=== PATIENT | male | born 1985 ===

== ENCOUNTER 2019-09-18 12:41 | Emergency (ER) | payer OTHER, MEDICAID, SELFPAY ==
[2019-09-18] VITALS (9 sets, daily range): BP systolic 108–139; BP diastolic 57–80; PULSE 68–97; RESP 13–34; TEMP 36.9; O2SAT 92–99
--- NOTE | 2019-09-18 13:11 | DI.RAD.S_ITS ---
PROCEDURE: XR CHEST 1V INDICATIONS: flu-like symptoms TECHNIQUE: One view of the chest was acquired. COMPARISON: None. FINDINGS: Surgical changes and devices: None. Lungs and pleura: Lungs are clear. No pleural effusions or pneumothorax. Mediastinum: Mediastinal contours appear normal. Heart size is normal. Bones and chest wall: No suspicious bony lesions. Overlying soft tissues appear unremarkable. IMPRESSION: No acute cardiopulmonary findings. Dictated by: Trisha King M.D. on 09/18/2019 at 14:04 Approved by: Trisha King M.D. on 09/18/2019 at 14:04
--- NOTE | 2019-09-18 13:18 | ED_ITS ---
HPI - Chest Pain <VINNIE Person - Last Filed: 09/18/19 21:07> General Chief Complaint: Chest Pain Stated Complaint: Chest Pressure, Shortness of Breath Time Seen by Provider: 09/18/19 12:55 Source: EMS Mode of arrival: EMS Limitations: no limitations History of Present Illness HPI narrative: 33yo male with a history of CVA without known residual, presents emergency department complaining of shortness of breath, chest tightness, dry cough, and fever for the past 1-2 weeks. Patient reports he also developed lower mid to left-sided abdominal pain yesterday. He states ?I may have had a hernia that resolved ?. Patient reports dry heaving last night with nausea. Denies any diarrhea, constipation, dizziness, trauma, leg pain, syncope, recent falls, headaches, or any other concerns. Patient denies diabetes but states blood clots and diabetes run in his family. Patient states he has had a cataract-like abnormality in his left eye that he has been seen for approximately 2 months ago, is waiting for an appointment and follow-up with the specialist, denies any worsening visual abnormalities. Patient states that he is homeless and has been living in shelters. Reports use of marijuana. Related Data Home Medications Medication Instructions Recorded Confirmed ibuprofen 600 mg PO Q8H PRN 09/18/19 09/18/19 Allergies Allergy/AdvReac Type Severity Reaction Status Date / Time morphine AdvReac Intermediate ITCHING Verified 09/18/19 13:09 Review of Systems <VINNIE Person - Last Filed: 09/18/19 21:07> Review of Systems Narrative: REVIEW OF SYSTEMS: GENERAL: Denies fever, chills, malaise, or wt. loss. HENT: No head trauma. EYES: No vision changes. CARDIOVASCULAR: No chest pain, palpitations, or orthopnea. RESPIRATORY: Complains of cough and shortness of breath, see HPI. GASTROINTESTINAL: Complains of left lower quadrant abdominal pain, see HPI GENITOURINARY: No flank pain, urinary incontinence, hesitancy, frequency, or dysuria. Denies scrotal swelling or penile discharge. MUSCULOSKELETAL: No pain, weakness, or trauma. INTEGUMENTARY: No rash, lesions, or pruritus. NEURO: No numbness, tingling. No headaches. PSYCH: No behavior or mood changes. Patient History <VINNIE Person Last Filed: 09/18/19 21:07> Medical History CVA (cerebral vascular accident) (Acute) Social History Smoking Status: Current every day smoker Smoking Status: Current every day smoker alcohol intake frequency: 0-2 drinks per day Substance Use Type: does not use Exam <VINNIE Person - Last Filed: 09/18/19 21:07> Initial Vital Signs Initial Vital Signs: Vital Signs Temperature 98.5 F 09/18/19 12:45 Pulse Rate 89 09/18/19 12:45 Respiratory Rate 15 09/18/19 12:45 Blood Pressure 127/66 09/18/19 12:45 Pulse Oximetry 95 09/18/19 12:45 PHYSICAL EXAMINATION: GENERAL: Alert and awake, disheveled, poorly groomed. Patient appears tired but awakes to voice. Morbidly obese. Answers questions promptly and ap propriately. Vital signs noted. HENT: Normocephalic, atraumatic. Hearing intact. Oral mucosa is pink and moist. Oropharynx without erythema. EYES: Conjunctiva pink, sclera white, no periorbital swelling. CARDIOVASCULAR: S1 and S2 sounds normal. Regular rate and rhythm, no murmurs, clicks, or bruits. No pedal edema. RESPIRATORY: Normal respiratory rate, trachea midline, airway patent. No s tridor, nasal flaring or accessory muscle use. Lungs are clear in all [place] without wheeze, rhonchi, or crackles. Occasional dry cough noted throughout examination. GASTROINTESTINAL: Bowel sounds normoactive. Abdomen with left lower quadrant tenderness, no rebound tenderness. No organomegaly, no palpable masses. GENITALURINARY: No flank tenderness. MUSCULOSKELETAL: Normal gait and coordination. Equal tone and mass bilaterally. EXTREMITIES: CMS intact, no pedal edema. SKIN: Warm, dry, soft, appropriate color for ethnicity. No lesions, rashes, or wounds to visualized areas. NEURO: Alert and Oriented X 3. Good coordination. No ataxia, or sensory deficits, or cognitive issues. PSYCH: Appropriate affect and mood. <Aidan Malik MD - Last Filed: 09/19/19 07:42> Initial Vital Signs Initial Vital Signs: Vital Signs Temperature 98.5 F 09/18/19 12:45 Pulse Rate 89 09/18/19 12:45 Respiratory Rate 15 09/18/19 12:45 Blood Pressure 127/66 09/18/19 12:45 Pulse Oximetry 95 09/18/19 12:45 Course <VINNIE Person - Last Filed: 09/18/19 21:07> Course Course Narrative: Patient reported feeling somewhat better after administration of fluids, Toradol, and ondansetron. Patient was given resources to local shelters, HANDLE SANDER OPERATOR spoke with patient about resources. Orders Ordered: Discontinued Medications Sodium Chloride (Normal Saline 0.9%) 1,000 mls @ 1,000 mls/hr IV BOLUS ONE Stop: 09/18/19 16:51 Last Infusion: 09/18/19 18:03 Dose: 0 mls/hr Documented by: Admin: 09/18/19 16:03 Dose: 1,000 mls/hr Documented by: XAVIER Ketorolac Tromethamine (Toradol) 30 mg IV NOW ONE Stop: 09/18/19 15:09 Last Admin: 09/18/19 15:25 Dose: 30 mg Documented by: XAVIER Ondansetron HCl (Zofran) 4 mg IV NOW ONE Stop: 09/18/19 15:09 Last Admin: 09/18/19 15:25 Dose: 4 mg Documented by: XAVIER Consultations Consultation #1: Patient staffed with DR. Malik discussed symptoms, risk factors, history, test results, and plan of care. Vital Signs Vital signs: Vital Signs - 8 hr 09/18/19 13:00 09/18/19 13:13 09/18/19 13:30 Pulse Rate 90 97 H 68 Respiratory Rate 16 34 H 24 Blood Pressure [Right Arm] 118/57 L 118/57 L 139/80 Pulse Oximetry 92 94 94 09/18/19 14:00 09/18/19 14:56 09/18/19 16:00 Pulse Rate 75 79 78 Respiratory Rate 13 20 17 Blood Pressure [Right Arm] 125/75 132/78 Pulse Oximetry 93 94 98 09/18/19 17:30 09/18/19 18:00 Pulse Rate 84 86 Respiratory Rate 17 21 Blood Pressure [Right Arm] 129/75 108/58 L Pulse Oximetry 99 99 <Aidan Malik MD - Last Filed: 09/19/19 07:42> Orders Ordered: Discontinued Medications Sodium Chloride (Normal Saline 0.9%) 1,000 mls @ 1,000 mls/hr IV BOLUS ONE Stop: 09/18/19 16:51 Last Infusion: 09/18/19 18:03 Dose: 0 mls/hr Documented by: Admin: 09/18/19 16:03 Dose: 1,000 mls/hr Documented by: XAVIER Ketorolac Tromethamine (Toradol) 30 mg IV NOW ONE Stop: 09/18/19 15:09 Last Admin: 09/18/19 15:25 Dose: 30 mg Documented by: XAVIER Ondansetron HCl (Zofran) 4 mg IV NOW ONE Stop: 09/18/19 15:09 Last Admin: 09/18/19 15:25 Dose: 4 mg Documented by: XAVIER Vital Signs Vital signs: Vital Signs - 8 hr 09/18/19 13:00 09/18/19 13:13 09/18/19 13:30 Pulse Rate 90 97 H 68 Respiratory Rate 16 34 H 24 Blood Pressure [Right Arm] 118/57 L 118/57 L 139/80 Pulse Oximetry 92 94 94 09/18/19 14:00 09/18/19 14:56 09/18/19 16:00 Pulse Rate 75 79 78 Respiratory Rate 13 20 17 Blood Pressure [Right Arm] 125/75 132/78 Pulse Oximetry 93 94 98 09/18/19 17:30 09/18/19 18:00 Pulse Rate 84 86 Respiratory Rate 17 21 Blood Pressure [Right Arm] 129/75 108/58 L Pulse Oximetry 99 99 MDM - Chest Pain <VINNIE Person - Last Filed: 09/18/19 21:07> Medical Records Data Attestation: I reviewed the patient's medical records. Lab Data Attestation: I reviewed the patient's lab results. Result diagrams: 09/18/19 13:00 09/18/19 13:00 Labs: Lab Results 09/18/19 09/18/19 09/18/19 Range/Units 13:00 13:00 13:00 WBC 8.2 (4.5-11.0) X10^3/uL RBC 4.93 (4.5-5.9) X10^6/uL Hgb 14.3 (13.5-17.5) g/dL Hct 41.9 (41-53) % MCV 85.0 (80-100) fL MCH 29.0 (26-34) PG MCHC 34.1 (30-36) % RDW 15.1 H (11.6-14.8) % Plt Count 326 (150-400) X10^3/uL Neut % (Auto) 59.9 (50-75) % Lymph % (Auto) 28.7 (25-40) % Callaway % (Auto) 7.6 (3-14) % Eos % (Auto) 3.1 (2-4) % Baso % (Auto) 0.7 (0-2) % Neut # (Auto) 4900 (1154-3993) /uL Lymph # (Auto) 2400 (4494-3621) /uL Callaway # (Auto) 600 (0-900) /uL Eos # (Auto) 300 (0-450) /uL Baso # (Auto) 100 (0-100) /uL D-Dimer < 200 (<230) ng/mL Sodium (137-145) mmol/L Potassium (3.4-5.1) mmol/L Chloride (98-107) mmol/L Carbon Dioxide (22-32) mmol/L BUN (9-20) mg/dL Creatinine (0.66-1.25) mg/dL Estimated GFR (>60) mL/min BUN/Creatinine Ratio (6-22) Glucose (70-100) mg/dL Calcium (8.4-10.2) mg/dL Ferritin (18-464) ng/mL Total Bilirubin (0.2-1.3) mg/dL AST (17-59) IU/L ALT (<50) IU/L Alkaline Phosphatase (38-126) U/L Lactate Dehydrogenase (313-618) U/L Total Creatine Kinase (55-170) U/L CK-MB (CK-2) (<2.37) ng/mL CK-MB (CK-2) Rel Index (1.5-5.0) % Troponin I (0.01-0.034) ng/mL C-Reactive Protein (<1.0) mg/dL NT-Pro-B Natriuret Pep (<125) pg/mL Total Protein (6.3-8.2) g/dL Albumin (3.5-5.0) g/dL Globulin (1.7-4.1) g/dL Albumin/Globulin Ratio (1.0-2.8) Procalcitonin < 0.05 (<0.5) ng/mL 09/18/19 Range/Units 13:00 WBC (4.5-11.0) X10^3/uL RBC (4.5-5.9) X10^6/uL Hgb (13.5-17.5) g/dL Hct (41-53) % MCV (80-100) fL MCH (26-34) PG MCHC (30-36) % RDW (11.6-14.8) % Plt Count (150-400) X10^3/uL Neut % (Auto) (50-75) % Lymph % (Auto) (25-40) % Callaway % (Auto) (3-14) % Eos % (Auto) (2-4) % Baso % (Auto) (0-2) % Neut # (Auto) (9702-6411) /uL Lymph # (Auto) (3816-9145) /uL Callaway # (Auto) (0-900) /uL Eos # (Auto) (0-450) /uL Baso # (Auto) (0-100) /uL D-Dimer (<230) ng/mL Sodium 140 (137-145) mmol/L Potassium 4.1 (3.4-5.1) mmol/L Chloride 107 (98-107) mmol/L Carbon Dioxide 26 (22-32) mmol/L BUN 10 (9-20) mg/dL Creatinine 0.72 (0.66-1.25) mg/dL Estimated GFR > 60.0 (>60) mL/min BUN/Creatinine Ratio 13.9 (6-22) Glucose 113 H (70-100) mg/dL Calcium 9.9 (8.4-10.2) mg/dL Ferritin 27 (18-464) ng/mL Total Bilirubin 0.5 (0.2-1.3) mg/dL AST 31 (17-59) IU/L ALT 25 (<50) IU/L Alkaline Phosphatase 71 (38-126) U/L Lactate Dehydrogenase 532 (313-618) U/L Total Creatine Kinase 123 (55-170) U/L CK-MB (CK-2) 1.12 (<2.37) ng/mL CK-MB (CK-2) Rel Index 0.9 L (1.5-5.0) % Troponin I < 0.012 (0.01-0.034) ng/mL C-Reactive Protein 0.8 (<1.0) mg/dL NT-Pro-B Natriuret Pep 60 (<125) pg/mL Total Protein 7.6 (6.3-8.2) g/dL Albumin 4.4 (3.5-5.0) g/dL Globulin 3.2 (1.7-4.1) g/dL Albumin/Globulin Ratio 1.4 (1.0-2.8) Procalcitonin (<0.5) ng/mL Urine Dip Bedside Urine Glucose Negative Bedside Urine Bilirubin - Negative Bedside Urine Ketone - Negative Urine Specific Minto 1.015 Bedside Urine Occult Blood - Negative Bedside Urine pH 6.0 Bedside Urine Protein - Negative Bedside Urine Urobilinogen +/- 1mg Bedside Urine Nitrite - Negative Bedside Urine Leukocytes - Negative Esterase Imaging Data Chest x-ray: Radiologist's Impression: [place] [address] XRay Report Signed Patient: Ferdinand Regalado#: [id number] : 1985Acct:[id number] Age/Sex: 33 / MDate of Service: 09/18/19 Loc: ED Accession Number: [id number] Procedure: XR chest 1V Ordering Provider: Jaja Templeton PROCEDURE: XR CHEST 1V INDICATIONS: flu-like symptoms TECHNIQUE: One view of the chest was acquired. COMPARISON: None. FINDINGS: Surgical changes and devices: None. Lungs and pleura: Lungs are clear. No pleural effusions or pneumothorax. Mediastinum: Mediastinal contours appear normal. Heart size is normal. Bones and chest wall: No suspicious bony lesions. Overlying soft tissues appear unremarkable. IMPRESSION: No acute cardiopulmonary findings. Dictated by: Trisha King M.D. on 09/18/2019 at 14:04 Approved by: Trisha King M.D. on 09/18/2019 at 14:04 CT scan - abdomen/pelvis: Radiologist's Impression: [address] [address] [address] Scan Report Signed Patient: Ferdinand Regalado#: [id number] : 1985Acct:[id number] Age/Sex: 33 / MDate of Service: 09/18/19 Loc: ED Accession Number: [id number] Procedure: CT abdomen pelvis w con Ordering Provider: Jaja Templeton PROCEDURE: CT ABDOMEN PELVIS W CON INDICATIONS: RLQ abd pain TECHNIQUE: After the administration of intravenous contrast, 5 mm thick sections acquired from the diaphragm to the symphysis. 5 mm coronal and sagittal reformats were acquired. For radiation dose reduction, the following was used: automated exposure control, adjustment of mA and/or kV according to patient size. COMPARISON: None. FINDINGS: Image quality: Excellent. ABDOMEN: Lung bases: Lung bases are clear. Heart size is normal. Solid organs: Liver is normal in size and enhancement. Gallbladder is mildly contracted. Biliary system is non dilated. Pancreas enhances normally. Spleen is normal in size and enhancement. No adrenal nodules. Kidneys demonstrate normal size and enhancement, without hydronephrosis. Low-density exophytic cystic lesions are present off the left renal cortex. Peritoneum and bowel: Bowel loops demonstrate normal wall thickness and caliber. The appendix is thin walled. No free fluid or air. Nodes and vessels: No retroperitoneal or mesenteric adenopathy by size criteria. Aorta and inferior vena cava are normal in size. Miscellaneous: No ventral hernias. PELVIS: Genitourinary: Bladder wall thickness is normal. Miscellaneous: No inguinal hernias or adenopathy. Bones: No suspicious bony lesions. No vertebral body compression fractures. IMPRESSION: 1. No acute intra-abdominal findings. Normal appendix. Dictated by: Trisha King M.D. on 09/18/2019 at 14:25 Approved by: Trisha King M.D. on 09/18/2019 at 14:27 ECG Data Interpretation: Normal sinus rhythm, rate 91, [place] interval 128, QTC 390. No ST elevation or ST depression. No T-wave abnormality. No ectopy. EKG also viewed by [place]. [facility] Narrative Medical decision making narrative: This is a 33-year-old homeless male who presents emergency department for cough, shortness of breath, and subjective fever for the past 2 weeks. Patient has a history of CVA. Patient's presentation is concerning for COVID-19 especially due to risk factors such as homelessness and living in shelters, nasal swab was sent for testing. Patient is not hypoxic, stable, without need for supplemental oxygen. Less concern for bacterial infectious etiology due to clear chest x-ray, normal white blood cell count, patient is afebrile non tachycardic in the emergency department. Additionally there was some concern for abdominal etiology due to reports of left-sided abdominal pain and history of vomiting. This may be due to viral etiology however CT scan was performed to rule out any acute abdominal infe ction, blockages, other concerns. CT negative. CMP within normal limits. Less concern for PE D-dimer is negative. D-dimer was initially done due to familial concerns of blood clots and patient reports CVA at a young age. Less concern for cardiac involvement as EKG is non-remarkable, troponin is n egative, BNP is negative, and patient denies any chest pain Patient was hemodynamically stable throughout the emergency department, reported some improvement with fluids and Toradol administration. Did not appear to need inpatient supplemental treatment. It the patient has had ongoing symptoms for the past 2 weeks without acute changes seen on x-ray or laboratory work without need for supplemental oxygen if patient does test positive for COVID-19 as significant etiology often occurs between days 7 through 11. However, patient was given very strict return precautions for new or worsening symptoms. Was given resources for follow-up and resources for shelters. Patient spoke with HANDLE SANDER OPERATOR. <Aidan Malik MD - Last Filed: 09/19/19 07:42> Lab Data Labs: Lab Results 09/18/19 09/18/19 09/18/19 Range/Units 13:00 13:00 13:00 WBC 8.2 (4.5-11.0) X10^3/uL RBC 4.93 (4.5-5.9) X10^6/uL Hgb 14.3 (13.5-17.5) g/dL Hct 41.9 (41-53) % MCV 85.0 (80-100) fL MCH 29.0 (26-34) PG MCHC 34.1 (30-36) % RDW 15.1 H (11.6-14.8) % Plt Count 326 (150-400) X10^3/uL Neut % (Auto) 59.9 (50-75) % Lymph % (Auto) 28.7 (25-40) % Callaway % (Auto) 7.6 (3-14) % Eos % (Auto) 3.1 (2-4) % Baso % (Auto) 0.7 (0-2) % Neut # (Auto) 4900 (8597-1961) /uL Lymph # (Auto) 2400 (5679-9634) /uL Callaway # (Auto) 600 (0-900) /uL Eos # (Auto) 300 (0-450) /uL Baso # (Auto) 100 (0-100) /uL D-Dimer < 200 (<230) ng/mL Sodium (137-145) mmol/L Potassium (3.4-5.1) mmol/L Chloride (98-107) mmol/L Carbon Dioxide (22-32) mmol/L BUN (9-20) mg/dL Creatinine (0.66-1.25) mg/dL Estimated GFR (>60) mL/min BUN/Creatinine Ratio (6-22) Glucose (70-100) mg/dL Calcium (8.4-10.2) mg/dL Ferritin (18-464) ng/mL Total Bilirubin (0.2-1.3) mg/dL AST (17-59) IU/L ALT (<50) IU/L Alkaline Phosphatase (38-126) U/L Lactate Dehydrogenase (313-618) U/L Total Creatine Kinase (55-170) U/L CK-MB (CK-2) (<2.37) ng/mL CK-MB (CK-2) Rel Index (1.5-5.0) % Troponin I (0.01-0.034) ng/mL C-Reactive Protein (<1.0) mg/dL NT-Pro-B Natriuret Pep (<125) pg/mL Total Protein (6.3-8.2) g/dL Albumin (3.5-5.0) g/dL Globulin (1.7-4.1) g/dL Albumin/Globulin Ratio (1.0-2.8) Procalcitonin < 0.05 (<0.5) ng/mL 09/18/19 Range/Units 13:00 WBC (4.5-11.0) X10^3/uL RBC (4.5-5.9) X10^6/uL Hgb (13.5-17.5) g/dL Hct (41-53) % MCV (80-100) fL MCH (26-34) PG MCHC (30-36) % RDW (11.6-14.8) % Plt Count (150-400) X10^3/uL Neut % (Auto) (50-75) % Lymph % (Auto) (25-40) % Callaway % (Auto) (3-14) % Eos % (Auto) (2-4) % Baso % (Auto) (0-2) % Neut # (Auto) (2887-1989) /uL Lymph # (Auto) (5753-9455) /uL Callaway # (Auto) (0-900) /uL Eos # (Auto) (0-450) /uL Baso # (Auto) (0-100) /uL D-Dimer (<230) ng/mL Sodium 140 (137-145) mmol/L Potassium 4.1 (3.4-5.1) mmol/L Chloride 107 (98-107) mmol/L Carbon Dioxide 26 (22-32) mmol/L BUN 10 (9-20) mg/dL Creatinine 0.72 (0.66-1.25) mg/dL Estimated GFR > 60.0 (>60) mL/min BUN/Creatinine Ratio 13.9 (6-22) Glucose 113 H (70-100) mg/dL Calcium 9.9 (8.4-10.2) mg/dL Ferritin 27 (18-464) ng/mL Total Bilirubin 0.5 (0.2-1.3) mg/dL AST 31 (17-59) IU/L ALT 25 (<50) IU/L Alkaline Phosphatase 71 (38-126) U/L Lactate Dehydrogenase 532 (313-618) U/L Total Creatine Kinase 123 (55-170) U/L CK-MB (CK-2) 1.12 (<2.37) ng/mL CK-MB (CK-2) Rel Index 0.9 L (1.5-5.0) % Troponin I < 0.012 (0.01-0.034) ng/mL C-Reactive Protein 0.8 (<1.0) mg/dL NT-Pro-B Natriuret Pep 60 (<125) pg/mL Total Protein 7.6 (6.3-8.2) g/dL Albumin 4.4 (3.5-5.0) g/dL Globulin 3.2 (1.7-4.1) g/dL Albumin/Globulin Ratio 1.4 (1.0-2.8) Procalcitonin (<0.5) ng/mL Urine Dip Bedside Urine Glucose Negative Bedside Urine Bilirubin - Negative Bedside Urine Ketone - Negative Urine Specific Minto 1.015 Bedside Urine Occult Blood - Negative Bedside Urine pH 6.0 Bedside Urine Protein - Negative Bedside Urine Urobilinogen +/- 1mg Bedside Urine Nitrite - Negative Bedside Urine Leukocytes - Negative Esterase Discharge Plan Departure Patient Disposition: Home Clinical Impression: Respiratory illness Discharge Date/Time: 09/18/19 19:32 Instructions: DI for COVID-19 (Suspected or Confirmed ) Activity Restrictions/Additional Instructions: Thank you for entrusting me with your care today. As discussed, your chest x- ray, abdominal CT, laboratory work, and EKG are non-remarkable. It is possible that you may have a viral illness. We have tested due for COVID-19. Please be re-evaluated immediately if symptoms worsen such as shortness of breath, cough, fevers, or any other concerns. Symptoms continue, please be re-evaluated in 48- 72 hours. *What to do: * per recommendations from the CDC and the [facility] Department of Health * stay home except to get medical care. Restrict activities outside your home, except for getting medical care. Do not go to work, school, or public areas. Avoid using public transportation, ride sharing, or taxis. * separate yourself from other people in your home. * call ahead before visiting your doctor * Wear a face mask * Cover your coughs and sneezes * Clean your hands often * Avoid sharing household items * Clean all high-touch services every day * Monitor your symptoms and seek prompt medical attention if your illness is worsening, particularly with difficulty in breathing. Discussed continuing home isolation * for individuals with symptoms who are confirmed or suspected cases of COVID-19 and are directed to care for themselves at home, discontinue home isolation under the following conditions: 1. At least 72 hours have passed since recovery, defined as resolution of fever without the use of fever reducing medications, and improvement in respiratory symptoms (cough, shortness of breath) AND, 2. At least 7 days have passed since symptoms 1st appeared Individuals with laboratory confirmed COVID-19 who have not had any symptoms may discontinue home isolation when at least 7 days have passed since the date of their 1st COVID-19 diagnostic test and have had no subsequent illness Prescriptions: No Action ibuprofen 600 mg Tablet 600 mg PO Q8H PRN (Reason: Pain (Scale Score 1-3)) RF: 0
[2019-09-18 13:20] LABS: Add Manual Diff / Slide Review NO; Basophils Absolute Auto 100 /uL (0-100); Basophils Percent Auto 0.7 % (0-2); Eosinophils Absolute Auto 300 /uL (0-450); Eosinophils Percent Auto 3.1 % (2-4); Hematocrit 41.9 % (41-53); Hemoglobin 14.3 g/dL (13.5-17.5); Lymphocytes Absolute Auto 2400 /uL (1100-4500); Lymphocytes Percent Auto 28.7 % (25-40); Mean Corpuscular HGB Conc 34.1 % (30-36); Monocytes Absolute Auto 600 /uL (0-900); Monocytes Percent Auto 7.6 % (3-14); Neutrophils Absolute Auto 4900 /uL (1500-7000); Neutrophils Percent Auto 59.9 % (50-75); Platelet Count 326 X10^3/uL (150-400); Red Blood Cell Count 4.93 X10^6/uL (4.5-5.9); Red Cell Distribution Width 15.1 % (11.6-14.8); White Blood Cell Count 8.2 X10^3/uL (4.5-11.0)
[2019-09-18 13:26] LABS: D Dimer < 200 ng/mL (<230)
[2019-09-18 13:33] LABS: Alanine Aminotransferase 25 IU/L (<50); Albumin 4.4 g/dL (3.5-5.0); Albumin Globulin Ratio 1.4 (1.0-2.8); Alkaline Phosphatase 71 U/L (38-126); Aspartate Aminotransferase 31 IU/L (17-59); BUN Creatinine Ratio 13.9 (6-22); Bilirubin Total 0.5 mg/dL (0.2-1.3); Blood Urea Nitrogen 10 mg/dL (9-20); C-Reactive Protein Quant 0.8 mg/dL (<1.0); Calcium 9.9 mg/dL (8.4-10.2); Carbon Dioxide 26 mmol/L (22-32); Chloride 107 mmol/L (98-107); Creatine Kinase 123 U/L (55-170); Estimated Glomerular Filt Rate > 60.0 mL/min (>60); Globulin 3.2 g/dL (1.7-4.1); Glucose 113 mg/dL (70-100); HEMOLYSIS 16 (0-50); Lactate Dehydrogenase 532 U/L (313-618); Potassium 4.1 mmol/L (3.4-5.1); Sodium 140 mmol/L (137-145); Total Protein 7.6 g/dL (6.3-8.2)
[2019-09-18 13:43] LABS: NT-proBNP (BNP-Adult 18+) 60 pg/mL (<125); Troponin I < 0.012 ng/mL (0.01-0.034)
[2019-09-18 13:46] LABS: CKMB % Relative Index 0.9 % (1.5-5.0); Creatine Kinase MB 1.12 ng/mL (<2.37)
[2019-09-18 13:47] LABS: Procalcitonin < 0.05 ng/mL (<0.5)
--- NOTE | 2019-09-18 14:01 | DI.CT.S_ITS ---
PROCEDURE: CT ABDOMEN PELVIS W CON INDICATIONS: RLQ abd pain TECHNIQUE: After the administration of intravenous contrast, 5 mm thick sections acquired from the diaphragm to the symphysis. 5 mm coronal and sagittal reformats were acquired. For radiation dose reduction, the following was used: automated exposure control, adjustment of mA and/or kV according to patient size. COMPARISON: None. FINDINGS: Image quality: Excellent. ABDOMEN: Lung bases: Lung bases are clear. Heart size is normal. Solid organs: Liver is normal in size and enhancement. Gallbladder is mildly contracted. Biliary system is non dilated. Pancreas enhances normally. Spleen is normal in size and enhancement. No adrenal nodules. Kidneys demonstrate normal size and enhancement, without hydronephrosis. Low-density exophytic cystic lesions are present off the left renal cortex. Peritoneum and bowel: Bowel loops demonstrate normal wall thickness and caliber. The appendix is thin walled. No free fluid or air. Nodes and vessels: No retroperitoneal or mesenteric adenopathy by size criteria. Aorta and inferior vena cava are normal in size. Miscellaneous: No ventral hernias. PELVIS: Genitourinary: Bladder wall thickness is normal. Miscellaneous: No inguinal hernias or adenopathy. Bones: No suspicious bony lesions. No vertebral body compression fractures. IMPRESSION: 1. No acute intra-abdominal findings. Normal appendix. Dictated by: Trisha King M.D. on 09/18/2019 at 14:25 Approved by: Trisha King M.D. on 09/18/2019 at 14:27
[2019-09-18 14:06] LABS: Ferritin 27 ng/mL (18-464)
[2019-09-18] MEDS: ONDANSETRON 4 MG/2 ML INJ IV (15:25)
[2019-09-18] MEDS: KETOROLAC 60 MG/2 ML VIAL 30 MG IV (15:25)
[2019-09-18] MEDS: SODIUM CHLORIDE 0.9% 1,000 ML 1000 ML IV (16:03)
--- NOTE | 2019-09-18 19:24 | CM.SWNOTE ---
MICROFILM TECHNICIAN note MICROFILM TECHNICIAN consult requested for patient by RM Borrego. Patient is pending COVID and reports having no place to go upon discharge. MICROFILM TECHNICIAN meets with patient. Patient says he has been feeling depressed and tired. Patient reports that he has not had stable housing in many years, and was staying in a motel prior to admission to ED. Patient said he was staying at a motel, but that his voucher had . 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 MICROFILM TECHNICIAN and patient explore options for place for patient to go. Patient does not believe that he will be able to stay with his friends and does not qualify for a voucher. Patient states he does not want to return to [place], as the people he was staying with there were not good people. MICROFILM TECHNICIAN informs patient of [employer] motel program increase due to covid. [place] states he has number and says he might call following week. Patient asks where exit is and leaves ED. ISABELL Mckee
--- NOTE | 2019-09-18 19:30 | PC.NURSE ---
seen by social work. Pt left department
[2019-09-20 20:48] LABS: COVID19 Sendout Not Detected (Not Detected)
== END 2019-09-18 19:32 | disposition home or self-care (01) ==
PROVIDERS: Emergency Provider Nurse Practitioner
DX: Z03.818 Encounter for observation for suspected exposure to other biological agents ruled out (principal); R10.31 Right lower quadrant pain; R68.89 Other general symptoms and signs
CPT/HCPCS: 36415; 71045; 74177; 80053; 81003; 82550; 82553; 82728; 83615; 83880; 84145; 84484; 85025; 85379; 86140; 87040; 87635; 93005; 96361; 96374; 96375; 99284; J1885; J2405; Q9967